=== PATIENT | male | born 1930 | race Caucasian/White ===

== ENCOUNTER 2017-03-20 06:25 | Day surgery (SDC) | payer MEDICARE, OTHER ==
[2017-03-20] MEDS ORDERED: Lactated Ringers 1,000 ML IV SCH (06:45)
[2017-03-20] MEDS ORDERED: Sodium Chloride 0.9% 10 ML Syringe FLUSH PRN (06:45)
[2017-03-20] MEDS ORDERED: Propofol 200 MG/20 ML SDV IV ONE (08:15)
[2017-03-20] MEDS ORDERED: Midazolam 1 MG/ML 2 ML SDV IV ONE (08:15)
[2017-03-20] MEDS ORDERED: Lidocaine 2% 100 MG/5 ML Syringe IVPUSH ONE (08:15)
--- NOTE | 2017-03-20 08:19 | PCM.HPR ---
H & P Addendum review - H & P Addendum Review Date of Original H & P: 02/27/17 Date Reviewed: 03/20/17 Time Reviewed: 08:00 Patient was examined: No Changes (Ok to proceed with EGD and Colonoscopy)
--- NOTE | 2017-03-20 08:56 | PCM.OPNOTE ---
- General Post-Op/Procedure Note Date of Surgery/Procedure: 03/20/17 Operative Procedure(s): EGD wit Bx. Colonoscopy Findings: Erosions of Duodenum Hiatal Hernia with distal Esophagitis Pre Op Diagnosis: Fe Def Anemia Post-Op Diagnosis: Same Anesthesia Technique: MAC Primary Surgeon: Tip Thrasher Anesthesia Provider: Ana Cr Pathology: Antraum and Distal Esophagus Complications: None Condition: Good
[2017-03-20 09:50] VITALS: BP 145/81
--- NOTE | 2017-03-20 10:01 | OR ---
DATE OF OPERATION: 03/20/2017 SURGEON: Tip Thrasher MD PREOPERATIVE DIAGNOSIS: Iron-deficiency anemia. POSTOPERATIVE DIAGNOSES: 1. Duodenal erosion. 2. Small hiatal hernia. 3. Distal esophagitis. 4. Sigmoid diverticulosis. PROCEDURE: 1. Esophagogastroduodenoscopy with biopsy. 2. Colonoscopy. ANESTHESIA: IV sedation. NARRATIVE: The patient was brought to the procedure room, where a time-out was performed. Oral anesthetic gargle was given and oral bite block was placed. Upper endoscope was advanced into the esophagus under direct vision without difficulty. Vocal cords were viewed and were normal. The scope was advanced to the third portion of the duodenum and duodenum had inflammation with superficial erosions in the first portion, which appears to be his source of anemia. There was no active bleeding. Antrum and body were normal. Retroflexion revealed a small hiatal hernia. There was evidence of distal esophagitis with some inflammation, but no erosions or ulcers. I did take biopsies from the antrum to check for Helicobacter pylori. Air was removed from the stomach and the scope withdrawn through the remaining esophagus, which appeared normal. The patient tolerated this portion of the procedure well. Next, colonoscopy was performed after digital rectal exam was performed, which was normal. The colonoscope was inserted and advanced to the level of the cecum without difficulty. Cecal position was confirmed by identifying the appendiceal lumen and ileocecal valve. Prep was good and surfaces were well visualized. Upon withdrawing the scope, the ascending, transverse, and descending colon were normal. The sigmoid colon had multiple diverticula present. Rectum was normal and retroflexion was normal. Air was removed and the scope was withdrawn. The patient tolerated the procedure well and returned to recovery in stable condition. The patient will follow up with Dr. Live in one week for review of pathology report. I will have the patient begin omeprazole 20 mg daily. If Helicobacter pylori is present on his biopsies, this should be treated. /[id number] CINDY/JARETH
== END 2017-03-20 10:10 | disposition home or self-care (01) ==
LOC: FB.SDS 06:25
PROVIDERS: ATTEND Surgery
DX: K29.30 Chronic superficial gastritis without bleeding (principal); K31.7 Polyp of stomach and duodenum; K22.70 Barrett's esophagus without dysplasia; K57.30 Diverticulosis of large intestine without perforation or abscess without bleeding; Z88.0 Allergy status to penicillin; Z88.1 Allergy status to other antibiotic agents; Z88.8 Allergy status to other drugs, medicaments and biological substances; E78.00 Pure hypercholesterolemia, unspecified; E03.9 Hypothyroidism, unspecified; I10 Essential (primary) hypertension; N40.1 Benign prostatic hyperplasia with lower urinary tract symptoms; R33.8 Other retention of urine; Z98.890 Other specified postprocedural states; Z95.5 Presence of coronary angioplasty implant and graft; Z96.653 Presence of artificial knee joint, bilateral; I50.9 Heart failure, unspecified; I25.10 Atherosclerotic heart disease of native coronary artery without angina pectoris; Z79.899 Other long term (current) drug therapy; Z79.82 Long term (current) use of aspirin
CPT/HCPCS: 00810; 43239; 45378; 88305; 88313; 88342; J2250; J2704; J7120

== ENCOUNTER 2017-11-12 18:38 | Emergency (ER) | payer MEDICARE, OTHER ==
--- NOTE | 2017-11-12 19:46 | EDM.PDOC ---
ED HPI GENERAL MEDICAL PROBLEM - General Chief Complaint: Respiratory Problem Stated Complaint: SOB Bilateral Upper Chest Pain Score (Numeric/FACES): 5 - Related Data Allergies Allergy/AdvReac Type Severity Reaction Status Date / Time ciprofloxacin [From Cipro] Allergy Rash Verified 11/12/17 19:05 ciprofloxacin HCl Allergy Rash Verified 11/12/17 19:05 [From Cipro] lisinopril Allergy Cough Verified 11/12/17 19:05 Penicillins Allergy Rash Verified 11/12/17 19:05 Home Meds: Home Meds Ferrous Sulfate 325 mg PO BIDM 10/09/13 [History] Finasteride [Proscar] 5 mg PO DAILY 10/09/13 [History] Levothyroxine Sodium 50 mcg PO DAILY 10/09/13 [History] Metoprolol Tartrate 50 mg PO BID 10/09/13 [History] Tamsulosin [Flomax] 0.4 mg PO DAILY 10/09/13 [History] Travoprost [Travatan Z 0.004% Ophth Soln] 1 drop EYEBOTH BID 10/09/13 [History] Losartan [Cozaar] 25 mg PO BEDTIME 03/19/17 [History] atorvaSTATin [Lipitor] 10 mg PO DAILY 03/19/17 [History] Past Medical History Cardiovascular History: Reports: CAD, SD Genitourinary History: Reports: Other (See Below) Other Genitourinary History: SEE ABOVE Endocrine/Metabolic History: Reports: Hypothyroidism - Past Surgical History Cardiovascular Surgical History: Reports: Other (See Below) Other Cardiovascular Surgeries/Procedures: WENT IN THROUGH MY VEINS TO OPEN UP MY HEART VESSEL GI Surgical History: Reports: Colonoscopy Musculoskeletal Surgical History: Reports: Knee Replacement Social & Family History - Tobacco Use Smoking Status *Q: Never Smoker Second Hand Smoke Exposure: No - Caffeine Use Caffeine Use: Reports: Coffee - Alcohol Use Days Per Week of Alcohol Use: 0 - Recreational Drug Use Recreational Drug Use: No Course - Vital Signs Last Recorded V/S: Last Vital Signs Temp 36.9 C 11/12/17 19:09 Pulse 69 11/12/17 19:09 Resp 20 11/12/17 19:09 BP 160/77 H 11/12/17 19:09 Pulse Ox 97 11/12/17 19:09 - Orders/Labs/Meds Orders: Active Orders 24 hr Category Date Time Status EKG Documentation Completion [RC] ASDIRECTED Care 11/12/17 19:04 Active Chest 1V Frontal [CR] Stat Exams 11/12/17 19:04 Ordered PRO B-TYPE NATRIUR PEPT,BNPPRO [CHEM] Stat Lab 11/12/17 19:15 Received TROPONIN I [CHEM] Stat Lab 11/12/17 19:15 Received EKG 12 Lead [EK] Routine Ther 11/12/17 19:04 Ordered Labs: Laboratory Tests 11/12/17 11/12/17 Range/Units 19:15 19:15 WBC 7.0 (4.5-12.0) X10-3/uL RBC 4.28 L (4.30-5.75) x10(6)uL Hgb 12.9 (11.5-15.5) g/dL Hct 38.7 (30.0-51.3) % MCV 90.4 (80-96) fL MCH 30.2 (27.7-33.6) pg MCHC 33.4 (32.2-35.4) g/dL RDW 13.0 (11.5-15.5) % Plt Count 144 (125-369) X10(3)uL MPV 9.4 (7.4-10.4) fL Neut % (Auto) 81.1 (46-82) % Lymph % (Auto) 6.5 L (13-37) % [place] % (Auto) 8.9 (4-12) % Eos % (Auto) 3 (1.0-5.0) % Baso % (Auto) 0 (0-2) % Neut # (Auto) 5.7 (1.6-8.3) # Lymph # (Auto) 0.5 L (0.6-5.0) # [place] # (Auto) 0.6 (0.0-1.3) # Eos # (Auto) 0.2 (0.0-0.8) # Baso # (Auto) 0.0 (0.0-0.2) # Sodium 142 (135-145) mmol/L Potassium 4.5 (3.5-5.3) mmol/L Chloride 105 (100-110) mmol/L Carbon Dioxide 29 (21-32) mmol/L BUN 20 H (7-18) mg/dL Creatinine 1.3 (0.70-1.30) mg/dL Est Cr Clr Drug Dosing 34.79 mL/min Estimated GFR (MDRD) 52 L (>60) BUN/Creatinine Ratio 15.4 (9-20) Glucose 105 (80-116) mg/dL Calcium 8.8 (8.6-10.2) mg/dL Departure - Discharge Information Referrals: Jose Luis Live MD [Primary Care Provider] -
[2017-11-12] MEDS ORDERED: Albuterol/Ipratropium 3.0-0.5 MG/3 ML Neb Soln NEB ONE (20:02)
[2017-11-12] MEDS ORDERED: Furosemide 40 MG/4 ML VIAL IVPUSH ONE (20:08)
[2017-11-12] MEDS ORDERED: Sodium Chloride 0.9% 10 ML Syringe FLUSH PRN (20:41)
[2017-11-12] MEDS ORDERED: Albuterol 8 GM Inhaler INH ONE (20:57)
[2017-11-12 21:02] VITALS: BP 167/81
--- NOTE | 2017-11-13 22:13 | ER ---
DATE SEEN: 11/12/2017 CHIEF COMPLAINT: Chest tightness. HISTORY OF PRESENT ILLNESS: This is an 87-year-old male with chest tightness that started this afternoon, especially when he coughs. His cough is nonproductive and associated with some pain in the chest area. He denies fever or chills. Initially, thought he had a cold. PAST MEDICAL HISTORY: Aortic stenosis, ischemic cardiomyopathy, hypertension, hyperlipidemia. SOCIAL HISTORY: He does not smoke or drink. ALLERGIES: Please see the [employer]. PHYSICAL EXAMINATION: VITAL SIGNS: Blood pressure 160/77, temperature 98.4, pulse 69. ENT: Negative. NECK: No thyromegaly. CHEST: Clear breath sounds. CARDIOVASCULAR: Normal. DIAGNOSTIC DATA: Labs: Troponin negative. Creatinine normal. BNP 1024. Normal white cell count. Chest x-ray showed mild infiltration, possibly CHF related. EKG was normal sinus rhythm. IMPRESSION: 1. Acute bronchitis. 2. Congestive heart failure exacerbation. PLAN: I gave him DuoNeb x1. His breathing improved. I also gave him 40 mg of Lasix 1 time and eat and rest well. His vital signs improved. I discharged him home on Lasix 20 mg a day and ProAir 2 puffs q.4 hours p.r.n. Follow up with Dr. Live in 1 to 2 weeks or his partner. TIME SEEN: 1900 hours. /[id number] STORM/JARETH
== END 2017-11-12 20:58 | disposition home or self-care (01) ==
LOC: FB.ED 18:38
DX: J20.9 Acute bronchitis, unspecified (principal); I11.0 Hypertensive heart disease with heart failure; I50.9 Heart failure, unspecified; E78.5 Hyperlipidemia, unspecified; Z88.1 Allergy status to other antibiotic agents; Z88.0 Allergy status to penicillin; Z88.8 Allergy status to other drugs, medicaments and biological substances; Z79.899 Other long term (current) drug therapy; R06.02 Shortness of breath; R07.89 Other chest pain
CPT/HCPCS: 36415; 71045; 80048; 83880; 84484; 85025; 93005; 94640; 96374; 99284; 99285; A9270; J1940; J7050; J7620; 99213

== ENCOUNTER 2021-10-25 16:42 | Emergency (ER) | payer MEDICARE, OTHER ==
[2021-10-25] MEDS ORDERED: Furosemide 40 MG/4 ML VIAL IVPUSH ONE (17:59)
[2021-10-25] MEDS ORDERED: Sodium Chloride 0.9% 10 ML Syringe FLUSH PRN (17:59)
[2021-10-25] MEDS ORDERED: Metolazone 2.5 MG Tab PO ONE (17:59)
[2021-10-25 20:01] VITALS: BP 172/98; PULSE 103
== END 2021-10-25 20:05 | disposition home or self-care (01) ==
LOC: FB.ED 16:42
DX: I50.9 Heart failure, unspecified (principal); I25.10 Atherosclerotic heart disease of native coronary artery without angina pectoris; I25.2 Old myocardial infarction; E03.9 Hypothyroidism, unspecified; Z88.1 Allergy status to other antibiotic agents; Z88.0 Allergy status to penicillin; Z88.8 Allergy status to other drugs, medicaments and biological substances; Z79.899 Other long term (current) drug therapy
CPT/HCPCS: 36415; 71045; 80053; 83880; 84484; 85025; 93005; 96374; 99284; 99285-25; A9270-GY; J1940

== ENCOUNTER 2022-04-20 05:55 | Emergency (ER) | payer MEDICARE, OTHER ==
[2022-04-20] MEDS ORDERED: Lidocaine 2% HCl 6 ML Jel MM STA (06:05)
[2022-04-20 07:38] LABS: ESTIMATED GFR 31 mL/min (>60)
[2022-04-20 08:30] VITALS: BP 145/66; PULSE 66
== END 2022-04-20 08:00 ==
LOC: FB.ED 05:55
DX: R33.9 Retention of urine, unspecified (principal); I25.10 Atherosclerotic heart disease of native coronary artery without angina pectoris; E03.9 Hypothyroidism, unspecified; Z79.899 Other long term (current) drug therapy; Z88.0 Allergy status to penicillin; Z88.8 Allergy status to other drugs, medicaments and biological substances
CPT/HCPCS: 36415; 51702; 80048; 85027; 99283-25; A9270-GY; U0002